=== PATIENT | male | born 1970 | race Caucasian/White ===

== ENCOUNTER 2018-08-21 22:21 | Emergency (ER) | payer OTHER ==
[~2018-08-21] VITALS: Ht 175.3 cm; Wt 152.8 kg
[2018-08-21] MEDS ORDERED: LISINOPRIL2.5 MG PO (22:30)
[2018-08-21] MEDS ORDERED: GLIPIZIDE ER2.5 MG PO (22:31)
[2018-08-21] MEDS ORDERED: HYDROCHLOROT25 MG PO (22:31)
[2018-08-21] MEDS ORDERED: FLEXERIL PO (23:40)
[2018-08-21] MEDS ORDERED: ULTRAM50 M1 PO (23:40)
[2018-08-21 23:46] VITALS: BP 177/100
== END 2018-08-22 | disposition home or self-care (01) | DRG 552 ==
LOC: ED 22:21
DX: S13.9XXA Sprain of joints and ligaments of unspecified parts of neck, initial encounter (principal); E11.9 Type 2 diabetes mellitus without complications; I10 Essential (primary) hypertension; M43.22 Fusion of spine, cervical region; W01.198A Fall on same level from slipping, tripping and stumbling with subsequent striking against other object, initial encounter; Y92.009 Unspecified place in unspecified non-institutional (private) residence as the place of occurrence of the external cause

== ENCOUNTER 2021-02-23 | Emergency (ER) | payer BC ==
[~2021-02-23] MED LIST: FLEXERIL PO; GLIPIZIDE ER2.5 MG PO; HYDROCHLOROT25 MG PO; LISINOPRIL2.5 MG PO; ULTRAM50 M1 PO
[2021-02-23 21:38] LABS: HEMATOCRIT 44.7 % (39.0-50.0); HEMOGLOBIN 14.5 g/dl (14.0-18.0); IMMATURE GRANULOCYTES 0.3 % (0.0-5.0); MEAN CELL VOLUME 87.5 fL CALC (80.0-100.0); MEAN CORPUSCULAR HGB 28.4 pG CALC (26.0-32.0); MEAN CORPUSCULAR HGB CONC 32.4 g/dL CAL (32.0-36.0); NEUT# 6.99 thou/uL (1.82-7.42); RED BLOOD COUNT 5.11 mill/uL (4.70-6.10); RED CELL DISTRI WIDTH 12.5 % (11.5-15.5)
[2021-02-23] MEDS ORDERED: NOVOLOG FL100 UNIT/M SC (21:45)
[2021-02-23 21:56] LABS: ALBUMIN 4.1 g/dL (3.2-5.0); ALKALINE PHOSPHATASE 94 u/l (38-126); ANION GAP 11 (6-22 (CALC)); BILIRUBIN, TOTAL 0.6 mg/dL (0.0-1.4); BUN 14 mg/dL (9-20); BUN/CREATININE RATIO 19 (12-20 (CALC)); CARBON DIOXIDE 31 mmol/l (22-30); CHLORIDE 95 mmol/l (95-108); CREATININE 0.7 mg/dL (0.7-1.3); GFR > 60 ML/MIN (>=60 (CALC)); GFR FOR AFR.AMER. > 60 ML/MIN (>=60 (CALC)); LIPASE 660 u/l (23-300); SGOT/AST 21 u/l (17-59); SODIUM 133 mmol/l (137-146); TOTAL PROTEIN 7.5 g/dL (6.3-8.2)
[2021-02-23 21:58] LABS: ACT PARTIAL THROMBO TIME 22.3 SECONDS (20.0-32.5); PROTHROMBIN TIME 9.8 SECONDS (9.0-12.5)
[2021-02-23 22:27] LABS: AMYLASE 55 u/l (30-110); ETHYL ALCOHOL 0 mg/dl (0-30)
== END 2021-02-23 23:30 | disposition left against medical advice (07) | DRG 313 ==
DX: R07.9 Chest pain, unspecified (principal); M25.561 Pain in right knee; I10 Essential (primary) hypertension; E11.9 Type 2 diabetes mellitus without complications; E66.9 Obesity, unspecified; F17.200 Nicotine dependence, unspecified, uncomplicated; Z79.4 Long term (current) use of insulin; Z91.19 Patient's noncompliance with other medical treatment and regimen; Z20.822 Contact with and (suspected) exposure to COVID-19
CPT/HCPCS: Q9967